=== PATIENT | male | born 1985 | race Two or more races ===

== ENCOUNTER 2017-04-14 06:51 | Day surgery (SDC) | END 2017-04-14 09:42 | disposition home or self-care (01) ==

== ENCOUNTER 2018-11-11 12:05 | Day surgery (SDC) | payer OTHER ==
[~2018-11-11] VITALS: Ht 167.6 cm; Wt 95.2 kg
[~2018-11-11 12:05] MED LIST: HEADACHE MED; INHALER; OMEPRAZOLE; [UNRECOGNIZED DRUG - REMARK]; [UNRECOGNIZED DRUG - REMARK]
[2018-11-11 12:44] VITALS: Ht 167.6 cm; Wt 95.2 kg
[2018-11-11 12:52] VITALS: BP 115/64; PULSE 64; RESP 18
[2018-11-11] MEDS ORDERED: LIDOCAINE 2% (SDV) 5 ML INJ ONE (13:22)
[2018-11-11] MEDS ORDERED: PROPOFOL 40 ML ONE (13:22)
[2018-11-11 13:42] VITALS: BP 112/58; PULSE 70; RESP 16
[2018-11-11] MEDS ORDERED: ONDANSETRON 4 MG INJ IV PRN (14:00)
[2018-11-11] MEDS ORDERED: FENTAnyl 50 MCG/ML VIAL IV PRN (14:00)
[2018-11-11 14:01] VITALS: BP 108/65; PULSE 62; RESP 15
== END 2018-11-11 15:03 | disposition home or self-care (01) ==
LOC: GIL 12:05
PROVIDERS: ATTEND Internal Medicine Gastroenterology
DX: K29.50 Unspecified chronic gastritis without bleeding (principal); J45.909 Unspecified asthma, uncomplicated; F84.0 Autistic disorder
CPT/HCPCS: 43239; 88305; 88312; Z7610